=== PATIENT | male | born 2000 | race African-American/Black ===

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

== ENCOUNTER → 2025-07-21 | Outpatient (CLI) | payer OTHER | LOC: M RAD 14:54 | PROVIDERS: ATTEND Physician Assistant | DX: S60.211A Contusion of right wrist, initial encounter (principal); W18.30XA Fall on same level, unspecified, initial encounter; Y92.009 Unspecified place in unspecified non-institutional (private) residence as the place of occurrence of the external cause ==

== ENCOUNTER → 2025-08-03 | Outpatient (CLI) | payer OTHER | LOC: M SOG 13:21 | PROVIDERS: ATTEND Orthopaedic Surgery Hand Surgery | DX: M79.641 Pain in right hand (principal) ==